=== PATIENT | male | born 1985 | race American Indian/Alaskan Native ===

== ENCOUNTER 2020-09-18 16:48 | Emergency (ER) | payer SELFPAY ==
[2020-09-18 17:04] VITALS: BP 140/99
--- NOTE | 2020-09-18 18:22 | Event Note ---
ED Screening Note Date of service: 09/18/20 Time: 18:21 ED Screening Note: Patient presents via EMS with complaints of sudden onset of arms walking up and unable to speak He denies any prior history of anxiety or seizures Patient states he does remember everything that happened This initial assessment/diagnostic orders/clinical plan/treatment(s) is/are subject to change based on patients health status, clinical progression and re- assessment by fellow clinical providers in the ED. Further treatment and workup at subsequent clinical providers discretion. Patient/guardian urged not to elope from the ED as their condition may be serious if not clinically assessed and managed. Initial orders include: Labs
[2020-09-18 18:52] LABS: Basophils % (Auto) 0.4 % (0.0-1.8); Eosinophils % (Auto) 0.2 % (0.0-4.3); Hematocrit 41.8 % (35.5-45.6); Hemoglobin 13.9 gm/dl (11.8-15.2); Lymphocytes % (Auto) 15.7 % (13.4-35.0); Mean Corpuscular HGB Conc 33 % (32-34); Mean Corpuscular Volume 99 fl (84-94); Monocytes # (Auto) 0.5 K/mm3 (0.0-0.8); Monocytes % (Auto) 8.1 % (0.0-7.3); Platelet Count 161 K/mm3 (140-440); Red Blood Count 4.23 M/mm3 (3.65-5.03); Red Cell Distribution Width 13.7 % (13.2-15.2)
[2020-09-18 19:19] LABS: Alanine Aminotransferase 27 units/L (7-56); Albumin 4.5 g/dL (3.9-5); Blood Urea Nitrogen 6 mg/dL (9-20); Calcium 9.9 mg/dL (8.4-10.2); Hemolysis Index 4
[2020-09-18 19:24] LABS: BUN/Creatinine Ratio 9
[2020-09-18] MEDS ORDERED: SODIUM CHLORIDE 0.9% 1000 ML 1,000 ML IV ONE (21:34)
[2020-09-18] MEDS ORDERED: ONDANSETRON 4 MG/2 ML INJ IV ONE (21:36)
--- NOTE | 2020-09-18 21:48 | Emergency Department Report ---
ED General Adult HPI - General Chief complaint: Extremity Injury, Upper Stated complaint: MALAISE Time Seen by Provider: 09/18/20 18:18 Source: patient Mode of arrival: Ambulatory Limitations: No Limitations - History of Present Illness Initial comments: Patient is a 35-year-old male who presents for bilateral hand and arm cramping. Patient states EtOH on yesterday. States he went out to a restaurant tonight and started to experience cramps in both hands and arms, patient denies withdrawal symptoms, there is no chest pain, numbness or tingling, shortness of breath, dizziness, lightheadedness, or nausea vomiting. Patient states last EtOH was yesterday. He is tolerating p.o. intake without nausea vomiting, patient appears alert oriented x3 he is amatory with steady gait with no acute distress. Patient states he arrived via ambulance as he had no other ride to get to the hospital. He rates his symptoms at 3/10 at this time. Severity scale (0 -10): 0 - Related Data Previous Rx's Medication Instructions Recorded Last Taken Type Folic Acid 1 mg PO DAILY #7 tablet 09/18/20 Unknown Rx Magnesium Oxide 400 mg PO DAILY #3 tablet 09/18/20 Unknown Rx Thiamine [Vitamin B-1] 100 mg PO QDAY #7 tablet 09/18/20 Unknown Rx Allergies Allergy/AdvReac Type Severity Reaction Status Date / Time No Known Allergies Allergy Unverified 09/18/20 17:01 ED Review of Systems ROS: Stated complaint: MALAISE Other details as noted in HPI Constitutional: denies: chills, fever Eyes: denies: eye pain, eye discharge, vision change ENT: denies: ear pain, throat pain Respiratory: no symptoms reported Cardiovascular: denies: chest pain, palpitations Endocrine: no symptoms reported Gastrointestinal: denies: abdominal pain, nausea, vomiting, diarrhea Genitourinary: denies: urgency, dysuria Musculoskeletal: other (cramps). denies: back pain, joint swelling, arthralgia Skin: denies: rash, lesions Neurological: denies: headache, weakness, paresthesias Psychiatric: denies: anxiety, depression Hematological/Lymphatic: denies: easy bleeding, easy bruising ED Past Medical Hx - Past Medical History Previous Medical History?: No - Surgical History Past Surgical History?: No - Social History Smoking Status: Current Every Day Smoker Substance Use Type: Alcohol - Medications Home Medications: Home Medications Medication Instructions Recorded Confirmed Last Taken Type Folic Acid 1 mg PO DAILY #7 tablet 09/18/20 Unknown Rx Magnesium Oxide 400 mg PO DAILY #3 tablet 09/18/20 Unknown Rx Thiamine [Vitamin B-1] 100 mg PO QDAY #7 tablet 09/18/20 Unknown Rx ED Physical Exam - General Limitations: No Limitations General appearance: alert, in no apparent distress - Head Head exam: Present: atraumatic, normocephalic - Eye Eye exam: Present: normal appearance, PERRL, EOMI Pupils: Present: normal accommodation - ENT ENT exam: Present: mucous membranes moist - Neck Neck exam: Present: normal inspection, full ROM. Absent: tenderness - Respiratory Respiratory exam: Present: normal lung sounds bilaterally. Absent: respiratory distress, wheezes, stridor, chest wall tenderness - Cardiovascular Cardiovascular Exam: Present: regular rate, normal rhythm, normal heart sounds. Absent: systolic murmur, diastolic murmur, rubs, gallop - GI/Abdominal GI/Abdominal exam: Present: soft, normal bowel sounds. Absent: distended, tenderness, guarding, rebound, rigid, bruit, hernia - Rectal Rectal exam: Present: deferred - Extremities Exam Extremities exam: Present: normal inspection, full ROM, normal capillary refill. Absent: tenderness, pedal edema, joint swelling - Back Exam Back exam: Present: normal inspection, full ROM. Absent: tenderness, CVA tenderness (R), CVA tenderness (L) - Neurological Exam Neurological exam: Present: alert, oriented X3, CN II-XII intact, normal gait, reflexes normal. Absent: motor sensory deficit - Expanded Neurological Exam Expanded Patient oriented to: Present: person, place, time Speech: Present: fluid speech Motor strength exam: RUE: 5, LUE: 5, RLE: 5, LLE: 5 DTR: tricep (R): 2+, tricep (L): 2+, ankle (R): 2+, ankle (L): 2+ Best Eye Response ([place]): (4) open spontaneously Best Motor Response ([place]): (6) obeys commands Best Verbal Response ([place]): (5) oriented [place] Total: 15 - Psychiatric Psychiatric exam: Present: normal affect, normal mood - Skin Skin exam: Present: warm, dry, intact, normal color. Absent: rash ED Course Vital Signs 09/18/20 17:01 Temperature 98.4 F Pulse Rate 83 Respiratory 18 Rate Blood Pressure 140/99 [Right] O2 Sat by Pulse 99 Oximetry ED Medical Decision Making - Lab Data Result diagrams: 09/18/20 18:27 09/18/20 18:27 Labs 09/18/20 09/18/20 09/18/20 18:27 18:27 18:27 WBC 6.3 RBC 4.23 Hgb 13.9 Hct 41.8 MCV 99 H MCH 33 H MCHC 33 RDW 13.7 Plt Count 161 Lymph % (Auto) 15.7 [place] % (Auto) 8.1 H Eos % (Auto) 0.2 Baso % (Auto) 0.4 Lymph # (Auto) 1.0 L [place] # (Auto) 0.5 Eos # (Auto) 0.0 Baso # (Auto) 0.0 Seg Neutrophils % 75.6 H Seg Neutrophils # 4.7 Sodium 138 Potassium 3.6 Chloride 93.4 L Carbon Dioxide 30 Anion Gap 18 BUN 6 L Creatinine 0.7 L Estimated GFR > 60 BUN/Creatinine Ratio 9 Glucose 89 Calcium 9.9 Magnesium 1.30 L Total Bilirubin 0.50 AST 209 H ALT 27 Alkaline Phosphatase 133 H Total Protein 8.4 H Albumin 4.5 Albumin/Globulin Ratio 1.2 - Medical Decision Making Symptoms relieved, pt advised to decrease etoh intake, pt verbalized agreement and understanding of same. pt dc'd to home in stable condition at this time., pt is currently a/o x3 ambulatory with steady gait, rom intact and unrestricted. Critical care attestation.: If time is entered above; I have spent that time in minutes in the direct care of this critically ill patient, excluding procedure time. ED Disposition Clinical Impression: Muscle spasm, Dehydration, mild Disposition: DC-01 TO HOME OR SELFCARE Is pt being admited?: No Does the pt Need Aspirin: No Condition: Stable Instructions: Muscle Cramps and Spasms, [id number], Rehydration, Adult Prescriptions: Folic Acid 1 mg PO DAILY #7 tablet Magnesium Oxide 400 mg PO DAILY #3 tablet Thiamine [Vitamin B-1] 100 mg PO QDAY #7 tablet Referrals: WHIT ZAMORA MD [Primary Care Provider] - 3-5 Days RASHI AMARO MD [Staff Physician] - 3-5 Days Forms: Work/School Release Form(ED) Time of Disposition: 23:57
== END 2020-09-19 00:05 | disposition home or self-care (01) ==
LOC: ED 16:48
DX: E86.0 Dehydration (principal); F17.200 Nicotine dependence, unspecified, uncomplicated
CPT/HCPCS: 36415; 80053; 83735; 85025; 96361; 96374; 99283; J2405; J7030